=== PATIENT | male | born 1950 | race Caucasian/White ===

== ENCOUNTER 2022-07-11 07:30 | Outpatient (CLI) | payer MEDICARE, BC, SELFPAY | END 2022-07-11 07:31 | disposition home or self-care (01) | LOC: NFLDREF 11:42 | PROVIDERS: PCP Internal Medicine; Referring Provider Internal Medicine; Visit Provider Internal Medicine | DX: Z00.00 Encounter for general adult medical examination without abnormal findings (principal); E78.5 Hyperlipidemia, unspecified; I10 Essential (primary) hypertension; R73.03 Prediabetes | CPT/HCPCS: 80048; 80061 ==

== ENCOUNTER 2023-07-25 07:31 | Outpatient (CLI) | payer MEDICARE, BC, SELFPAY ==
--- OUTSIDE RECORDS SUMMARY | 2023-07-27 07:19 | XMS_ITS | Continuity of Care Document ---
Author Name Unknown Organization [facility] Address [address] [place] [address] Phone Care Team Providers Care Pathology Technician Name Role Phone Seht Nunez MD Unavailable Unavailable Allergies, Adverse Reactions, Alerts Substance Reaction Status Criticality Penicillins Active No Information Medications Medication Instructions Dosage Effective Dates (start - stop) Status Comments HYDROCHLOROTHIAZIDE (unknown strength) Not Available - Active LOVASTATIN (unknown strength) Not Available - Active AMLODIPINE BESYLATE (unknown strength) Not Available - Active Procedures Procedure Date Ophth Serv: Med Exam; Comp Est 17 Ophth Serv: Med Exam; Comp Est 16 Ophth Serv: Med Exam; Comp Est 15 Ophth Serv: Med Exam; Comp Est 14 Ophth Serv: Med Exam; Comp Est 13 Postop F/u Visit Incld Global 2 Ophth Serv: Med Exam; Comp New 11 Advance Directives Directive Yes / No Effective Date File Name No Information Encounters Encounter Description Practice Location Reason(s) For Visit Diagnoses Date Provider Providers Copied on Encounter [facility], [address], [place], [place], [id number], [place] tel:[phone] [facility] Retina Exam (chief complaint)C ataract Evaluation (chief complaint) Age-related nuclear cataract, bilateralBenign neoplasm of right choroid 7 Poulose Seth. [address], [place], [place], [address] . tel: [phone] Referring Provider: Angi Drake, [address] [place] [address], [address]. tel:[phone] [facility], [address], [place], [place], [address], [place] tel:[phone] [facility] Cataract evaluation (chief complaint)R etina Exam (chief complaint) Age-related nuclear cataract, bilateralBenign neoplasm of right choroid 6 Poulose Seth. [address], [place], [place], [address] . tel: [phone] Referring Provider: Angi Drake, [address] [place] [address], [address]. tel:[phone] [facility], [address], [place], [place], [address], [place] tel:[phone] [facility] Cataract evaluation (chief complaint)R etina exam (chief complaint) Nuclear Cataractchorodial nevus (mole/freckle) 5 Poulose Seth. [address], [place], [place], [address] . tel: [phone] [facility], [address], [place], [address], [place] tel:[phone] [facility] Nuclear Cataractchorodial nevus (mole/freckle) 4 Poulose Seth[address], [place], [place], [address] . tel: [phone] [facility], [address], [place], [place], [address], [place] tel:[phone] [facility] No Information 3 Poulose Seth. [address], [place], [place], [address] . tel: [phone] [facility], [address], [place], [place], [address], [place] tel:[phone] [facility] Office No Information 2 Enrique Ann. [address], [place], [place], [address] . tel: [phone] [facility], [address], [place], [address], [place] tel:[phone] [facility] Office Senile Nuclear CataractBenign Neoplasm Choroid 1 Enrique Ann. [address], [place], [place], [address] . tel: [phone] Family History Family Member Type Diagnosis Age At Onset Father Problem (finding) degenerative disorder o f macula Mother Problem (finding) Heart Disease Mother Problem (finding) cataract Father Problem (finding) Cancer Father Problem (finding) cataract Payers Payer name Insurance type Covered green party ID Authoriza tion(s) Medicare [facility] [id number] 2 [employer] [id number] Social History Type Description Quantity Date Captured Comments Alcohol Use Details 2 beers weekly Caffeine Use Details 3+ cups per day 7 Tobacco Use Status Ex-cigarette smoker 017 Smoking Status Former smoker Sex Male Chief Complaint And Reason For Visit From encounter dated '01/31/2017 15:10'. Retina Exam (chief complaint). Description: The 66 year old male presents for a retina exam in the right eye and left eye. Patient states having floaters, seems improved doesn't notice much. Patient states vision seems the same. Patient denies eye pain, flashes, redness, itching or tearing. Cataract Evaluation (chief complaint). Description: The patient presents for a cataract evaluation in the right eye and left eye. The patient reported no difficulty reading small print (such as labels on medicine bottles, a telephone book, or food labels), reading a newspaper or book, reading a large-print book or large-print newspaper or numbers on a phone, recognizing people when they are closeto you, seeing steps, stairs, or curbs, reading traffic signs, street signs, or store signs, writing checks or filling out forms, watching Television. He drives. He reports no difficulty driving during the day due to vision. He reports no difficulty driving at night due to vision. Reason For Referral Reason For Referral No Information History Of Present Illness Encounter Date Complaint History Of Prese nt Illness Cataract Evaluation The patient presents for a cataract evaluation in the right eye and left eye. The patient reported no difficulty reading small print (such as labels on medicine bottles, a telephone book, or food labels), reading a newspaper or book, reading a large-print book or large-print newspaper or numbers on a phone, recognizing people when they are close to you, seeing steps, stairs, or curbs, reading traffic signs, street signs, or store signs, writing checks or filling out forms, watching Television. He drives. He reports no difficulty driving during the day due to vision. He reports no difficulty driving at night due to vision. Retina Exam The 66 year old male presents for a retina exam in the right eye and left eye. Patient states having floaters, seems improved doesn't notice much. Patient states vision seems the same. Patient denies eye pain, flashes, redness, itching or tearing. Cataract evaluation The 65 year old male presents for a cataract evaluation in the right eye and left eye. Patient reports no difficulty reading small print (such as labels on medicine bottle, a telephone book or food labels. Patient reports no difficulty reading newspapers or books. Patient reports no difficulty reading large-print books or large-print newspapers or numbers on a phone. Patient reports no difficulty recognizing people when they are close. Patient reports no difficulty seeing steps, stairs, or curbs. Patient reports no difficulty reading traffic signs, street signs, or store signs. Retina Exam The patient pres ents for a retina exam in the right eye and left eye. Patient has history of nevus, right eye. Patient reports vision is the same. Patient denies pain. Patient reports no new onset of floaters/flashes. Patient denies distortion. Cataract evaluation The 64 year old male presents for a cataract evaluation in the right eye and left eye. Change in vision is the same. Patient reported no problems with ADLs. Patient reported no difficulty reading. Patient reported no difficulty driving. Patient reported no difficulty with near vision. Patient reported no difficulty with distance vision. Patient reported no problems with glare/halos. Retina exam The patient pres ents for a retina exam in the right eye and left eye. Patient presents for a choriodial nevus exam in the right eye. Patient denies changes to peripheral vision. Patient denies distortions, flashes, or pain. Patient reports occasional floaters. 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 Surgery not indicated will continue to monitor. Patient will update glasses Rx first. Related to Age-related nuclear cataract, bilateral Follow up - Return i n one year for full exam with refraction with Seth Nunez MD. Impression/Plan - Di scussed cataract diagnosis with the patient. Surgery not indicated will continue to monitor. Patient will update glasses Rx first. Related to Age-related nuclear cataract, bilateral Follow up - Return i n one year for full exam with refraction with Seth Nunez MD. 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 Impression/Plan Related to choro dial nevus (mole/freckle) Impression/Plan - Di scussed cataract diagnosis with the patient. Surgery not indicated will continue to monitor. Patient will update glasses Rx first. Related to Nuclear Cataract Choroidal Nevus (2246),OD Relate d to Choroidal Nevus (2246),OD Cataract, Nuclear Sc lerosis (88942),OU - established, stable - Discussed cataract diagnosis with the patient. Surgery not indicated will continue to monitor. Patient will update glasses Rx first. Related to Cataract, Nuclear Sclerosis (62005),OU - established, stable Cataract, Nuclear Sc lerosis (45873),OU - established, stable - Discussed cataract diagnosis with the patient. Surgery not indicated will continue to monitor. Patient will update glasses Rx first. Related to Cataract, Nuclear Sclerosis (88759),OU - established, stable Choroidal Nevus (2246),OD Relate d to Choroidal Nevus (2246),OD Choroidal Nevus (2246),OD Relate d to Choroidal Nevus (2246),OD Cataract, Nuclear Sc lerosis (89365),OU - established, stable - Discussed cataract diagnosis with the patient. Surgery not indicated will continue to monitor. Patient will update glasses Rx first. Related to Cataract, Nuclear Sclerosis (00279),OU - established, stable Cataract, Nuclear Sc lerosis (03083),OU - established, stable - Discussed cataract diagnosis with the patient. Surgery not indicated will continue to monitor. Patient will update glasses Rx first. Related to Cataract, Nuclear Sclerosis (85876),OU - established, stable Choroidal Nevus (2246),OD Relate d to Choroidal Nevus (2246),OD Assessments Type Assessment Date assessment Age-related nuclear cataract, bi lateral impression Age-related nuclear cataract, bi lateral: H25.13. 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 assessment Benign neoplasm of right choroid Patient Care Teams Name Effective Dates (start - stop) Status Members No Information
--- OUTSIDE RECORDS SUMMARY | 2023-07-27 07:19 | XMS_ITS | Clinical Summary ---
Author Name Unknown Organization [facility] [place] [address] Care Team Providers Care Etl Informatica Developer Name Role Phone Pcp, No Primary Care Provider Unavailabl e Social History Tobacco Use Types Packs/Day Years Used Date Smoking Tobacco: Never Assessed Sex and Gender Information Value Date Recorded Sex Assigned at Not on file Gender Identity Not on file Sexual Orientation Not on file Plan of Treatment Health Maintenance Due Date Last Done Comments Tdap 11/03/1962 Depression screening for age 12+ 1963 BMI (ht and wt on same day) for age 18+ 11/03/1969 Hepatitis C screening for age 18-79 11/03/1969 Tetanus booster 1971 Colonoscopy through age 75 11/03/1996 Lipids for age 45-75 11/03/1996 Zoster (shingles) series for age 50+ (1 of 2) 11/04/19 02 Medicare Wellness for age 65+ 11/03/2016 Pneumococcal series for age 65+ (1 of 1 - PCV) 017 COVID-19 vaccine series ( season) 3 Influenza for age 65+ 12/16/2023 Care Teams Etl Informatica Developer Relationship Specialty Start Date End Date Pcp, No . PCP - General 08/14/22
== END 2023-07-25 07:32 | disposition home or self-care (01) ==
LOC: NFLDREF 07-27 07:17
PROVIDERS: PCP Internal Medicine; Referring Provider Internal Medicine; Visit Provider Internal Medicine
DX: E78.5 Hyperlipidemia, unspecified (principal); R73.03 Prediabetes; I10 Essential (primary) hypertension
CPT/HCPCS: 80048; 80061

== ENCOUNTER 2024-02-05 06:55 | Outpatient (CLI) | payer MEDICARE, BC, SELFPAY ==
--- OUTSIDE RECORDS SUMMARY | 2024-02-05 06:58 | XMS_ITS | Clinical Summary ---
Author Organization [facility] Address [place], [place] [address] Care Team Providers Care Food Manager Name Role Phone Pcp, No Primary Care [...] PCV) 017 COVID-19 vaccine series ( season) 4 Influenza for age 65+ 12/16/2023 Care Teams Food Manager Relationship Specialty Start Date End Date Pcp, No . PCP - General 08/14/22
--- NOTE | 2024-02-05 08:03 | W.ANESCHARGE ---
Anesthesia Charges Start Date/Time Anesthesia Start Date: 02/05/24 Anesthesia Start Time: 07:49 Stop Date/Time Anesthesia Stop Date: 02/05/24 Anesthesia Stop Time: 08:21 Summary Extremes of Age - Over 70 or under 1: MDA
--- NOTE | 2024-02-05 08:25 | P.ANES_ITS ---
Anesthesia Charges Start Date/Time Anesthesia Start Date: 02/05/24 Anesthesia Start Time: 07:49 Stop Date/Time Anesthesia Stop Date: 02/05/24 Anesthesia Stop Time: 08:21 Summary Extremes of Age - Over 70 or under 1: CLINICAL RESEARCH COORDINATOR
== END 2024-02-05 06:56 | disposition home or self-care (01) ==
LOC: OP CLINIC 06:56
PROVIDERS: PCP Internal Medicine; Visit Provider Surgery
DX: Z12.11 Encounter for screening for malignant neoplasm of colon (principal); D12.4 Benign neoplasm of descending colon; D12.8 Benign neoplasm of rectum; Z86.0100 Personal history of colon polyps, unspecified
CPT/HCPCS: 00811; 45385; 88305; 99100; J2704

== ENCOUNTER 2024-07-30 07:36 | Outpatient (CLI) | payer MEDICARE, BC, SELFPAY | END 2024-07-30 07:37 | disposition home or self-care (01) | LOC: NFLDREF 08-01 17:43 | PROVIDERS: PCP Internal Medicine; Referring Provider Internal Medicine; Visit Provider Internal Medicine | DX: E78.5 Hyperlipidemia, unspecified (principal); I10 Essential (primary) hypertension; R73.03 Prediabetes; Z12.5 Encounter for screening for malignant neoplasm of prostate | CPT/HCPCS: 80048; 80061; G0103 ==